=== PATIENT | female | born 1985 | race Caucasian/White ===

== ENCOUNTER 2020-12-31 05:58 | Emergency (ER) | payer BC, OTHER ==
[~2020-12-31] VITALS: Ht 162.6 cm; Wt 65.3 kg
[2020-12-31] MEDS ORDERED: LEVBID0.375 MG PO (07:12)
[2020-12-31] MEDS ORDERED: AMOXICILLIN500 MG PO (07:14)
[2020-12-31] MEDS ORDERED: MONISTAT 745 GM VG (07:19)
== END 2020-12-31 07:56 | disposition home or self-care (01) ==
LOC: FSED 06:23
DX: O23.591 Infection of other part of genital tract in pregnancy, first trimester (principal); R33.9 Retention of urine, unspecified; K59.00 Constipation, unspecified
CPT/HCPCS: 81003; 99283